=== PATIENT | male | born 1995 | race Caucasian/White ===

== ENCOUNTER 2021-07-17 04:40 | Emergency (ER) | payer SELFPAY ==
[~2021-07-17] VITALS: Ht 175.3 cm; Wt 86.2 kg
--- NOTE | 2021-07-17 04:42 | NUR ---
PEPE ABBOTT. TAKEN TO CHAIR
[2021-07-17 04:43] VITALS: BP 138/75
[2021-07-17 04:55] VITALS: BP 138/75
--- NOTE | 2021-07-17 04:55 | NUR ---
Patient discharged with v/s stable. Written and verbal after care instructions given and explained. Patient verbalized understanding. Police with in custody. All questions addressed prior to discharge. Advised to follow up with PMD.
== END 2021-07-17 04:55 ==
LOC: MED 04:40
DX: Z02.89 Encounter for other administrative examinations (principal); V89.2XXA Person injured in unspecified motor-vehicle accident, traffic, initial encounter; Y93.89 Activity, other specified; Y92.89 Other specified places as the place of occurrence of the external cause; Y99.8 Other external cause status
CPT/HCPCS: 99283